=== PATIENT | female | born 1945 | race Caucasian/White ===

== ENCOUNTER 2020-12-16 17:28 | Emergency (ER) | payer MEDICARE ==
[2020-12-16] MEDS ORDERED: Fentanyl 100 MCG/2 ML VIAL ONE (18:12)
== END 2020-12-17 09:30 | disposition home or self-care (01) ==
LOC: NAV ERS 17:28
DX: I63.9 Cerebral infarction, unspecified (principal); G81.94 Hemiplegia, unspecified affecting left nondominant side; X31.XXXA Exposure to excessive natural cold, initial encounter; Z79.899 Other long term (current) drug therapy
CPT/HCPCS: 99284; J3010